=== PATIENT | male | born 1975 | race Caucasian/White ===

== ENCOUNTER 2017-09-29 09:48 | Day surgery (SDC) | payer OTHER ==
[~2017-09-29] VITALS: Ht 180.3 cm; Wt 69.2 kg
[2017-09-29] MEDS ORDERED: SERT50 PO (10:09)
== END 2017-09-29 13:55 | disposition home or self-care (01) ==
LOC: ORSCSDS 09:48
DX: M75.111 Incomplete rotator cuff tear or rupture of right shoulder, not specified as traumatic (principal); M75.21 Bicipital tendinitis, right shoulder; M75.51 Bursitis of right shoulder; S46.011A Strain of muscle(s) and tendon(s) of the rotator cuff of right shoulder, initial encounter; Z87.891 Personal history of nicotine dependence
CPT/HCPCS: C1713; J0171; J0690; J1100; J1885; J2250; J2405; J2710; J3010